=== PATIENT | female | born 1990 | race Caucasian/White ===

== ENCOUNTER 2022-04-06 15:00 | Outpatient (RCR) | payer OTHER, SELFPAY | END 2023-02-23 11:01 | disposition home or self-care (01) | PROVIDERS: Visit Provider Obstetrics & Gynecology | DX: R10.2 Pelvic and perineal pain (principal); N81.89 Other female genital prolapse; R27.8 Other lack of coordination; N94.2 Vaginismus; Z51.89 Encounter for other specified aftercare | CPT/HCPCS: 97110; 97112; 97140; 97530 ==

== ENCOUNTER 2023-02-01 16:17 | Outpatient (CLI) | payer OTHER, SELFPAY | END 2023-02-01 16:18 | disposition home or self-care (01) | PROVIDERS: PCP Nurse Practitioner Family; Visit Provider Registered Nurse | DX: N92.0 Excessive and frequent menstruation with regular cycle (principal) | CPT/HCPCS: 82728; 83540; 83550; 84443 ==

== ENCOUNTER 2023-02-03 16:46 | Outpatient (CLI) | payer OTHER, SELFPAY ==
--- NOTE | 2023-02-03 17:00 | CRLHL7_ITS ---
For Patients: As a result of the Century Cures Act, medical imaging exams and procedure reports are released immediately into your electronic medical record. You may view this report before your referring provider. If you have questions, please contact your health care provider. INDICATION: EXCESSIVE BLEEDING COMPARISON: none TECHNIQUE: 2D fox scale and color Doppler images were acquired of the pelvis using a transabdominal and transvaginal approach. FINDINGS: Sonographic images demonstrate a normal size and smooth outer contour of the uterus. Uterus measures 7.6 cm in length by 3.6 cm in AP diameter by 4.4 cm in transverse dimension. The myometrium has a normal uniform echotexture. IUD is present within the endometrial canal. The right ovary measures 3.5 x 1.4 x 1.8 cm in size and the left ovary measures 3.5 x 1.5 x 2.2 cm. The ovaries demonstrate normal arterial and venous blood flow on color Doppler analysis. There are no suspicious fluid collections within the cul-de-sac. IMPRESSION: Good position of the intrauterine device within the endometrial canal. No uterine fibroid. Dictated by Finn Vazquez MD @ 02/03/2023 8:43:29 PM (Electronically Signed)
== END 2023-02-03 16:47 | disposition home or self-care (01) ==
LOC: US 16:47
PROVIDERS: PCP Nurse Practitioner Family; Visit Provider Registered Nurse
DX: N92.0 Excessive and frequent menstruation with regular cycle (principal)
CPT/HCPCS: 76830; 76856; 93976

== ENCOUNTER 2023-03-24 11:50 | Outpatient (CLI) | payer OTHER, SELFPAY | END 2023-03-24 11:51 | disposition home or self-care (01) | LOC: NFLDREF 03-30 10:00 | PROVIDERS: PCP Nurse Practitioner Family; Referring Provider Nurse Practitioner Family; Visit Provider Registered Nurse | DX: D50.9 Iron deficiency anemia, unspecified (principal) | CPT/HCPCS: 82728 ==

== ENCOUNTER 2025-06-04 08:30 | Outpatient (RCR) | payer OTHER, SELFPAY | END 2025-06-26 12:58 | disposition home or self-care (01) | PROVIDERS: Visit Provider Student in an Organized Health Care Education/Training Program | DX: M25.552 Pain in left hip (principal); Z51.89 Encounter for other specified aftercare | CPT/HCPCS: 97110; 97161; 97530 ==